=== PATIENT | male | born 1975 | race Caucasian/White ===

== ENCOUNTER 2024-01-26 20:45 | Emergency (ER) | payer SELFPAY ==
[2024-01-26] MEDS ORDERED: Ibuprofen 200 MG Tab PO PRN (22:09)
[2024-01-26] MEDS: Lidocaine 1% with EPINEPHrine 1:100,000 20 ML MDV INFILT SCH (22:15)
[2024-01-26] MEDS: Acetaminophen 500 MG Tab PO ONE (22:40)
[2024-01-26] MEDS: Diphtheria,Pertussis(Acell),Tetanus Vaccine 0.5 ML Syringe IM ONE (23:06)
== END 2024-01-26 23:10 ==
LOC: VM.ED 20:45
DX: S01.01XA Laceration without foreign body of scalp, initial encounter (principal); I10 Essential (primary) hypertension; E66.9 Obesity, unspecified; Z68.32 Body mass index [BMI] 32.0-32.9, adult; Z23 Encounter for immunization; Y04.8XXA Assault by other bodily force, initial encounter
CPT/HCPCS: 12002; 12014; 90471; 90715; 99283; A9270; J3490